=== PATIENT | male | born 1950 | race Caucasian/White ===

== ENCOUNTER 2018-02-22 07:47 | Outpatient (CLI) | payer MEDICARE, BC ==
--- NOTE | 2018-02-23 09:37 | NM ---
NUCLEAR MEDICINE THYROID SCAN AND UPTAKE: Date: 02/22/18 HISTORY: Thyroiditis. TECHNIQUE/FINDINGS: 260 mCi I-123 dose was administered orally. This shows a normal distribution of the radiopharmaceutic al. The right lobe measures 4.8 cm and the left lobe measures 4.7 cm in length. The 6 hour uptake is 5.6% and the 24 hour uptake is 12.2%. Normal range is 6-18% and 10-30%, respect ively. IMPRESSION: Borderline low thyroid uptake. POS: DAVIDH
== END 2018-02-22 07:48 | disposition home or self-care (01) ==
LOC: NM 07:47
PROVIDERS: ATTEND Internal Medicine Endocrinology, Diabetes & Metabolism
DX: E06.9 Thyroiditis, unspecified (principal); Z86.39 Personal history of other endocrine, nutritional and metabolic disease; R94.6 Abnormal results of thyroid function studies
CPT/HCPCS: 78014; A9516